=== PATIENT | female | born 2000 | race Caucasian/White ===

== ENCOUNTER 2021-04-23 16:30 | Emergency (ER) | payer OTHER ==
[~2021-04-23 16:30] MED LIST: AMOXICILLIN500 MG PO; BACTRIM DS TAB1 EACH PO; BACTROBAN OINT22 GM EXT; FLAGYL500 MG PO; PREDNISONE 20 M20 MG PO; TESSALON PERLE100 MG PO; VENTOLIN HFA 66.7 GM INH; ZOFRAN4 MG PO
== END 2021-04-23 18:20 | disposition home or self-care (01) ==
LOC: ER1 16:30
DX: S61.213A Laceration without foreign body of left middle finger without damage to nail, initial encounter (principal); J45.909 Unspecified asthma, uncomplicated; F17.290 Nicotine dependence, other tobacco product, uncomplicated; Z23 Encounter for immunization; W26.8XXA Contact with other sharp object(s), not elsewhere classified, initial encounter; Y92.009 Unspecified place in unspecified non-institutional (private) residence as the place of occurrence of the external cause
CPT/HCPCS: 12001; 90471; 90715; 99283

== ENCOUNTER 2021-07-22 12:57 | Emergency (ER) | payer OTHER | END 2021-07-22 14:10 | disposition home or self-care (01) | LOC: ER1 12:57 | DX: J06.9 Acute upper respiratory infection, unspecified (principal); J45.909 Unspecified asthma, uncomplicated; Z86.73 Personal history of transient ischemic attack (TIA), and cerebral infarction without residual deficits; F17.200 Nicotine dependence, unspecified, uncomplicated; Z20.822 Contact with and (suspected) exposure to COVID-19 | CPT/HCPCS: 87081; 87880; 99283; U0003 ==

== ENCOUNTER 2021-09-13 14:06 | Emergency (ER) | payer OTHER ==
[2021-09-13 17:54] LABS: HEMOGLOBIN 14.8 gm/dl (12.3-15.3); RED BLOOD COUNT 5.04 M/UL (4.00-5.10); WHITE BLOOD COUNT 8.1 K/UL (4.5-11.0)
[2021-09-13 18:15] LABS: BUN/CREATININE RATIO 11 (0-10)
[2021-09-13 18:29] LABS: BORDETELLA PARAPERTUSSIS Not Detected (Not Detectd); BORDETELLA PERTUSSIS Not Detected (Not Detectd); CHLAMYDIA PNEUMONIAE Not Detected (Not Detectd); CORONAVIRUS HKU1 Not Detected (Not Detectd); CORONAVIRUS NL63 Not Detected (Not Detectd); CORONAVIRUS OC43 Not Detected (Not Detectd); CORONOAVIRUS 229E Not Detected (Not Detectd); HUMAN METAPNEUMOVIRUS Not Detected (Not Detectd); INFLUENZA A Not Detected (Not Detectd); INFLUENZA B Not Detected (Not Detectd); MYCOPLASMA PNEUMONIAE Not Detected (Not Detectd); PARAINFLUENZA VIRUS 1 Not Detected (Not Detectd); PARAINFLUENZA VIRUS 2 Not Detected (Not Detectd); PARAINFLUENZA VIRUS 3 Not Detected (Not Detectd); PARAINFLUENZA VIRUS 4 Not Detected (Not Detectd); RESPIRATORY SYNCYTIAL VIRUS Not Detected (Not Detectd)
[2021-09-13 19:31] LABS: HUMAN RHINOVIRUS/ENTEROVIRUS DETECTED (Not Detectd); SARS-CoV-2 NOT DETECTED (Not Detectd)
== END 2021-09-13 18:05 | disposition left against medical advice (07) ==
LOC: ER1 14:06
PROVIDERS: Nurse Practitioner; Preventive Medicine Occupational Medicine
DX: R05.9 Cough, unspecified (principal); R09.81 Nasal congestion; R52 Pain, unspecified; Z20.822 Contact with and (suspected) exposure to COVID-19; J45.909 Unspecified asthma, uncomplicated
CPT/HCPCS: 80053; 82550; 82553; 83874; 83880; 84484; 85025; 85652; 86140; 87633; 99283